=== PATIENT | female | born 1970 | race Hispanic/Latino ===

== ENCOUNTER → 2019-11-24 | Day surgery (SDC) | payer OTHER ==
[2019-11-21 11:47] LABS: ANION GAP 12.8 mmol/L (8-16); BLOOD UREA NITROGEN 17 mg/dL (7-26); BUN/CREATININE RATIO 23 (6-25); CALCIUM 9.1 mg/dL (8.4-10.2); CARBON DIOXIDE 24 mmol/L (22-29); CHLORIDE 108 mmol/L (98-107); CREATININE, SERUM 0.73 mg/dL (0.57-1.11); EST GLOMERULAR FILTRATION RATE > 60 ML/MIN (60-); GLUCOSE 93 mg/dL (74-118); POTASSIUM 3.8 mmol/L (3.5-5.1); SODIUM 141 mmol/L (136-145)
[~2019-11-24] MED LIST: BUPIVACAINE HCL 0.5% INJ 30 ML VIAL INJ ONE; CEFAZOLIN SOD 1 GM/NS 50ML 50 ML IV ONE; DEXAMETHASONE SOD PHOS 10 MG/1 ML VIAL ONE; DEXAMETHASONE SOD PHOS INJ 4 MG/ML VIAL ONE; ETOMIDATE 2 MG/ML 10 ML INJ IV ONE; FENTANYL CITRATE/PF 100MCG/2 ML INJ ONE; LIDOCAINE HCL 2% LOCAL INJ 5 ML SDV VIAL INJ ONE; LOSARTAN-HCTZ1 EACH PO; ONDANSETRON HCL INJ 2MG/ML 2ML 2 MG/ML VIAL ONE; SEVOFLURANE INHAL SOLN 250 ML PEN BTL ONE
[2019-11-24 09:20] VITALS: BP 153/86
--- NOTE | 2019-11-24 12:50 | Operative Report ---
DATE OF PROCEDURE: 11/24/2019 SURGEON: Jay Camacho DPM PREOPERATIVE DIAGNOSES: 1. Right hallux valgus. 2. Right heel spur. POSTOPERATIVE DIAGNOSES: 1. Right hallux valgus. 2. Right heel spur. PLANNED PROCEDURES: 1. Right Henok bunionectomy with 1st metatarsal osteotomy and internal fixation. 2. Left excision of heel spur with plantar fasciotomy. CAMPUS COORDINATOR: Basim Tejeda DPM ([place]) ANESTHESIA: General with a postoperative block consisting of 20 mL of 0.5% Marcaine plain mixed with 2 mL of dexamethasone phosphate. HEMOSTASIS: Pneumatic thigh tourniquet set at 350 mmHg for a total time approximately 40 minutes. MATERIALS: Two 2.0 mm x 40 mm cortical bone screws, 3-0 Vicryl, 4-0 nylon, and one TLS drain. PATHOLOGY: None. ESTIMATED BLOOD LOSS: Less than 10 mL. PROCEDURE NOTE: The patient was seen in the preoperative waiting room. The correct procedure and site were identified. The patient was brought to the operating room and placed on the operating table in supine position. General anesthesia was initiated. At this time, a well-padded pneumatic tourniquet was placed about the patient's right thigh. The right foot, ankle, and leg were then scrubbed, prepped, and draped in the usual aseptic manner. The right foot, ankle, and leg were exsanguinated with an Esmarch bandage and the pneumatic thigh tourniquet was inflated to 350 mmHg for a total time of approximately 40 minutes. Attention was directed to the dorsomedial aspect of the patient's right 1st metatarsophalangeal joint where a linear incision was made. A 6 cm curvilinear incision was made directly over the metatarsophalangeal joint medial to the extensor hallucis longus tendon. Incision was carried through subcutaneous tissue them from deep or underlying structures. All vital and neurovascular structures were identified, retracted medially laterally, and all bleeders were cauterized or ligated as deemed necessary. At this time, through the same incision a full lateral release was performed consisting of a deep transverse metatarsal ligament, lateral collateral ligament as well as the fibular sesamoidal ligament. The hallux was then put through range of motion and found to be functioning in a more proper anatomic alignment. Next, an inverted L-capsulotomy was performed at the level of the 1st metatarsophalangeal joint. Utilizing a sagittal saw, the medial eminence was resected and passed off to the back table. Next, the [employer] osteotomy was performed medial to lateral with a dorsal wing longer to allow for proper fixation. The capital fragment was transposed laterally approximately 3 mm and impacted onto the shaft of the 1st metatarsal. Next utilizing techniques of fixation, two 2.0 mm x 14 mm cortical bone screws were placed. Fixation site is stable and confirmed via intraoperative fluoroscopy. The wound was then copiously irrigated with sterile saline. Capsule and deep tissue were reapproximated with 3-0 Vicryl, subcutaneous tissue with 3-0 Vicryl, and the skin was closed using a running interlocking stitch with 4-0 nylon. Attention was then directed to the medial aspect of the patient's left plantar heel. A 4 cm linear incision made. The incision was carried to the subcutaneous tissues, them from deep or underlying structures. All vital and neurovascular structures were identified, retracted medially and laterally. All bleeders were cauterized or ligated as deemed necessary. Next, the dissection was carried down to the level of the plantar fascia where through the same incision approximately 1/2 to 1/3 of the plantar fascia was cut. The dissection was carried down to visualization of the plantar heel spur. Using osteotome and mallet as well as a rongeur, these were resected and passed off to the back table. Utilizing a rasp, the bone spur was resected and confirmed via intraoperative fluoroscopy. The wound was then copiously irrigated with sterile saline. Per manufacture protocol a TLS drain was placed. The subcutaneous tissue was reapproximated with 3-0 Vicryl, and the skin was closed using running interlocking stitch of 4-0 nylon. The patient tolerated the procedure and anesthesia well. The patient was transferred to the postoperative recovery room with vital signs stable and vascular status intact. The patient was monitored there for a short period of time before being sent home with the following written and oral instructions. 1. Keep the dressing clean, dry, and intact. 2. The patient is to remain nonweightbearing to the right lower extremity to avoid any ambulation until being seen in the office. 3. The patient was given the office number and instructed to contact us if any problems arise. MARII Vu /[id number]
== END | disposition home or self-care (01) ==
LOC: OR 05:12
PROVIDERS: ATTEND Podiatrist Foot & Ankle Surgery
DX: M20.11 Hallux valgus (acquired), right foot (principal); M77.31 Calcaneal spur, right foot; I10 Essential (primary) hypertension; Z01.810 Encounter for preprocedural cardiovascular examination; Z01.812 Encounter for preprocedural laboratory examination; Z11.59 Encounter for screening for other viral diseases
CPT/HCPCS: 28119; 28296; 36415; 80048; 87635; 93005; C1713; J0690; J1100; J2001; J2405; J3010

== ENCOUNTER → 2021-07-09 | Day surgery (SDC) | payer BC, OTHER ==
[2021-07-07 11:23] LABS: ANION GAP 10.2 mmol/L (8-16); CREATININE, SERUM 0.78 mg/dL (0.57-1.11); POTASSIUM 4.2 mmol/L (3.5-5.1)
[2021-07-07 11:30] LABS: CALCIUM 9.6 mg/dL (8.4-10.2)
[~2021-07-09] MED LIST changes: -CEFAZOLIN SOD 1 GM/NS 50ML 50 ML IV ONE; -DEXAMETHASONE SOD PHOS 10 MG/1 ML VIAL ONE; +DEXAMETHASONE SOD PHOS INJ 4 MG/ML SDV ONE; -DEXAMETHASONE SOD PHOS INJ 4 MG/ML VIAL ONE; -ETOMIDATE 2 MG/ML 10 ML INJ IV ONE; -FENTANYL CITRATE/PF 100MCG/2 ML INJ ONE; +HYDROCODONE/APAP 7.5MG-325MG 1 EA TAB ONE; +KETOROLAC TROMETHAMINE 30 MG/ML VIAL ONE; +MEPERIDINE HCL INJ 25 MG/ML VIAL ONE; +MIDAZOLAM HCL 2 MG/2 ML VIAL ONE; +POVIDONE IODINE 0.05% 0.05 % ML PO ONE; +PROPOFOL IV EMULSION 10 MG/ML 20 ML VIAL ONE; +SODIUM CHLORIDE 0.9% 50ML 50 ML ONE
[2021-07-09 08:55] VITALS: BP 140/82
== END | disposition home or self-care (01) ==
LOC: OR 05:18
PROVIDERS: ATTEND Podiatrist Foot & Ankle Surgery
DX: M20.12 Hallux valgus (acquired), left foot (principal); M77.32 Calcaneal spur, left foot; K21.9 Gastro-esophageal reflux disease without esophagitis; I10 Essential (primary) hypertension; Z88.8 Allergy status to other drugs, medicaments and biological substances; Z01.810 Encounter for preprocedural cardiovascular examination; Z01.812 Encounter for preprocedural laboratory examination; Z01.818 Encounter for other preprocedural examination; Z20.822 Contact with and (suspected) exposure to COVID-19; Z79.899 Other long term (current) drug therapy; Z86.16 Personal history of COVID-19
CPT/HCPCS: 28119; 28296; 36415; 71046; 80048; 93005; C1713; J0690; J1100; J1885; J2001; J2175; J2250; J2405; J2704; U0002

== ENCOUNTER → 2022-11-28 | Day surgery (SDC) | payer BC ==
[~2022-11-28] MED LIST changes: -BUPIVACAINE HCL 0.5% INJ 30 ML VIAL INJ ONE; -DEXAMETHASONE SOD PHOS INJ 4 MG/ML SDV ONE; +GLYCOPYRROLATE INJ 0.2 MG/ML VIAL ONE; -HYDROCODONE/APAP 7.5MG-325MG 1 EA TAB ONE; -KETOROLAC TROMETHAMINE 30 MG/ML VIAL ONE; +LACTATED RINGER'S 1,000 ML ONE; -MEPERIDINE HCL INJ 25 MG/ML VIAL ONE; +METFORMIN HCL500 MG PO; -ONDANSETRON HCL INJ 2MG/ML 2ML 2 MG/ML VIAL ONE; +PROPOFOL IV EMULSION 50 ML IV ONE; -SEVOFLURANE INHAL SOLN 250 ML PEN BTL ONE; -SODIUM CHLORIDE 0.9% 50ML 50 ML ONE
[2022-11-28 11:31] VITALS: TEMP 97.5
[2022-11-28 12:00] VITALS: BP 129/84; PULSE 74; RESP 16; O2SAT 96
== END | disposition home or self-care (01) ==
LOC: OR 08:25
PROVIDERS: ATTEND Internal Medicine Gastroenterology
DX: K29.50 Unspecified chronic gastritis without bleeding (principal); D12.0 Benign neoplasm of cecum; D12.3 Benign neoplasm of transverse colon; K31.7 Polyp of stomach and duodenum; R13.10 Dysphagia, unspecified; K57.30 Diverticulosis of large intestine without perforation or abscess without bleeding; K64.8 Other hemorrhoids; K21.9 Gastro-esophageal reflux disease without esophagitis; Z98.84 Bariatric surgery status; E11.9 Type 2 diabetes mellitus without complications; I10 Essential (primary) hypertension; Z88.8 Allergy status to other drugs, medicaments and biological substances; Z01.810 Encounter for preprocedural cardiovascular examination; Z79.84 Long term (current) use of oral hypoglycemic drugs; Z79.899 Other long term (current) drug therapy; Z68.34 Body mass index [BMI] 34.0-34.9, adult
CPT/HCPCS: 36415; 43239; 45384; 82948; 93005; J2001; J2250; J2704 ×2; J7121; 45378

== ENCOUNTER → 2024-05-23 | Day surgery (SDC) | payer BC ==
[2024-05-15 10:57] LABS: ANION GAP 14.6 mmol/L (8-16); CALCIUM 9.4 mg/dL (8.4-10.2); CREATININE, SERUM 0.72 mg/dL (0.57-1.11); POTASSIUM 3.6 mmol/L (3.5-5.1)
[~2024-05-23] MED LIST changes: +FAMOTIDINE 20 MG/2 ML VIAL IV ONE; +FENTANYL CITRATE/PF 100MCG/2 ML INJ ONE; -GLYCOPYRROLATE INJ 0.2 MG/ML VIAL ONE; -LACTATED RINGER'S 1,000 ML ONE; +ONDANSETRON HCL INJ 2MG/ML 2ML 2 MG/ML VIAL ONE; +PHENTERMINE HCL15 MG PO; -POVIDONE IODINE 0.05% 0.05 % ML PO ONE; -PROPOFOL IV EMULSION 50 ML IV ONE
[2024-05-23] MEDS: LACTATED RINGER'S 1,000 ML ONE (10:21)
[2024-05-23 12:40] VITALS: TEMP 97.2
[2024-05-23 13:00] VITALS: BP 150/81; PULSE 64; RESP 15; O2SAT 99
== END | disposition home or self-care (01) ==
LOC: OR 09:49
PROVIDERS: ATTEND Specialist
DX: M65.312 Trigger thumb, left thumb (principal); I10 Essential (primary) hypertension; E11.9 Type 2 diabetes mellitus without complications; Z88.8 Allergy status to other drugs, medicaments and biological substances; Z01.810 Encounter for preprocedural cardiovascular examination; Z01.812 Encounter for preprocedural laboratory examination; Z79.84 Long term (current) use of oral hypoglycemic drugs; Z79.899 Other long term (current) drug therapy
CPT/HCPCS: 26055; 36415; 80048; 93005; J0690; J2003; J2250; J2405; J2704; J3010; J7121